=== PATIENT | female | born 1985 | race Caucasian/White ===

== ENCOUNTER 2019-12-08 09:32 | Outpatient (CLI) | payer OTHER, SELFPAY | END 2019-12-08 23:59 | disposition home or self-care (01) | LOC: MLB 09:32 → EDSTATUS 12-16 11:47 | PROVIDERS: ATTEND Internal Medicine Gastroenterology | DX: K62.5 Hemorrhage of anus and rectum (principal); Z86.010 Personal history of colon polyps; Z53.8 Procedure and treatment not carried out for other reasons; Z20.828 Contact with and (suspected) exposure to other viral communicable diseases | CPT/HCPCS: U0003-CS ==